=== PATIENT | male | born 1940 | race Caucasian/White ===

== ENCOUNTER 2017-01-27 11:58 | Observation (INO) | payer MEDICARE, BC ==
[~2017-01-27] VITALS: Ht 163.8 cm; Wt 64.5 kg
--- NOTE | ~2017-01-27 | HEMODYNAMI ---
PATIENT:CHRISTEN GOLDSTEIN MEDICAL RECORD: [id number] : 38 LOCATION:[place] [address] ADMISSION DATE: 01/27/17 Generatedon:01/28/201713:41 Patient name: CHRISTEN GOLDSTEIN Patient #: [id number] SSN: : 1 11/16/1939 Date of study: 01/28/2017 Page: Of Hemodynamic Procedure Report Patient Data Patient Demographics Procedure consent was obtained First Name: CHRISTEN Gender: Male Last Name: TRISTON : 1940 [facility] Initial: GENE Age: 76 year(s) Patient #: [id number] Race: Unknown Additional ID: [id number] Contact details Address: [address] [place] [address] [facility] State: [place] City: [place] Zip code: [address] Past Medical History Allergies: No known allergies Admission Admission Data Admission Date: 01/27/2017 Admission Time: 18:13 Room #: [facility] Lab Results Lab Result Date: 01/28/2017 Lab Result Time: 0:00 Biochemistry Name Units Result Min Max BUN mg/dl 29 --(----)-* 7 18 Creatinine mg/dl 1.9 --(----)-* 0.6 1.3 CBC Name Units Result Min Max Hemoglobin g/dl 14.8 --(-*--)-- 13.5 17.5 Procedure Procedure Types Cath Procedure Diagnostic Procedure LHC LHC w/Coronaries w/Grafts Procedure Description Procedure Date Procedure Date: 01/28/2017 Procedure Start Time: 13:19 Procedure End Time: 13:40 Procedure Staff Name Function Lowell Coleman MD Performing Physician Rissa Wilson RN Nurse Diaz Mejias RT Monitor Aris Grigsby RT Scrub Procedure Data Cath Procedure Fluoroscopy Diagnostic fluoroscopy Total fluoroscopy Time: 5.2 time: 5.2 min min Diagnostic fluoroscopy Total fluoroscopy dose: 327 dose: 327 mGy mGy Contrast Material Contrast Material Type Amount (ml) Isovue 300 87 Entry Location Entry Primary Successful Side Size Upsize Upsize Entry Closure Succes sful Closure Location (Fr) 1 (Fr) 2 (Fr) Remarks Device Remarks Femoral Right 5 Fr Exoseal artery Estimated blood loss: 10 ml Diagnostic catheters Device Type Used For End Catheter Placement Cordis 5Fr JL 4.0 Procedure Catheter (MP) Cordis 5Fr 3DRC Catheter Procedure (MP) Cordis 5Fr Pigtail Procedure Catheter (MP) Procedure Complications No complications Procedure Medications Medication Administration Route Dosage Oxygen NC 2 l/min Heparin Flush Bag added to field 2 bags (1000units/500ml NS) Lidocaine 2% added to field 20 Versed I.V. 1 mg Fentanyl I.V. 50 mcg Versed I.V. 0.5 mg Fentanyl I.V. 25 mcg Versed I.V. 0.5 mg Fentanyl I.V. 25 mcg Hemodynamics Rest HGB: 14.8 (g/dl) Heart Rate: 48 (bpm) Pressure Samples Time Site Value (mmHg) Purpose Heart Use Rate(bpm) 13:27 AO 138/63(94) Snapshot 53 13:32 LV 117/-5,5 Snapshot 65 Gradients Valve Time Site Site Mean SEP/DFP Peak To Heart Use 1 2 (mmHg) (sec/min) Peak Rate (mmHg) (bpm) Aortic 13:32 LV AO 58 Snapshots Pre Cath Intra NCS Post Cath Vital Signs Time Heart Resp SPO2 etCO2 [id number] NIBP (mmHg) Rhythm Pain Sedation Rate (ipm) (%) (mmHg) (mmHg) Status Level (bpm) 13:00:29 59 16 100 0 0 124/74(98) A-Fib 0 (11) 10(A) , No pain 13:04:37 55 16 99 0 0 121/77(113) A-Fib 0 (11) 10(A) , No pain 13:08:49 60 16 98 0 0 133/61(99) A-Fib 0 (11) 10(A) , No pain 13:13:01 59 16 98 0 0 119/73(88) A-Fib 0 (11) 9(A) , No pain 13:17:56 61 17 98 0 0 111/73(94) A-Fib 0 (11) 9(A) , No pain 13:22:02 54 16 96 0 0 119/69(100) A-Fib 0 (11) 9(A) , No pain 13:26:11 60 16 98 0 0 116/64(98) A-Fib 0 (11) 9(A) , No pain 13:30:24 53 17 99 0 0 125/59(86) A-Fib 0 (11) 9(A) , No pain 13:34:31 57 17 99 0 0 136/77(117) A-Fib 0 (11) 9(A) , No pain 13:37:17 61 15 97 0 0 138/64(109) A-Fib 0 (11) 9(A) , No pain Medications Time Medication Route Dose Verified Delivered Reason Notes Effec tiveness by by 12:59:30 Oxygen NC 2 Lowell Rissa Per l/min [facility] RN physician 12:59:39 Heparin Flush added 2 Lowell Lowell used for Bag to bags [facility] procedure (1000units/500ml field MD BAILEY NS) 12:59:45 Lidocaine 2% added 20ml Lowell Lowell used for to vial [facility] procedure field MD BAILEY 13:08:57 Versed I.V. 1 mg [facility] 13:09:03 Fentanyl I.V. 50 Lowell Rissa for mcg [facility] 13:16:28 Versed I.V. 0.5 Lowell Rissa for mg [facility] sed[facility] 13:16:30 Fentanyl I.V. 25 Lowell Rissa for mcg [facility] sed[facility] 13:19:41 Fentanyl I.V. 25 Lowell Rissa for mcg [facility] sed[facility] 13:19:52 Versed I.V. 0.5 Lowell Rissa for mg [facility] RN sedation Procedure Log Time Note 12:30:48 Aris Grigsby RT(R) sent for patient. Start room use. 12:43:57 Time tracking: Regular hours 12:44:03 Plan of Care:Hemodynamics will remain stable., Cardiac rhythm will remain stable., Comfort level will be maintained., Respiratory function will remain adequate., Patient/ family verbilizes understanding of procedure., Procedure tolerated without complication., Recovers from procedure without complications.. 12:44:12 Patient allergic to No known allergies 12:45:05 Lab Result : BUN 29 mg/dl 12:45:05 Lab Result : Creatinine 1.9 mg/dl 12:45:05 Lab Result : Hemoglobin 14.8 g/dl 12:45:11 Lab results completed and on chart. 12:54:22 Patient received from PCU to CCL 1 Alert and oriented. Tansferred to table in Supine position. 12:54:23 Warm blankets applied, and jackelyn hugger turned on for patient comfort. 12:54:23 Correct patient and procedure confirmed by team. 12:54:24 Signed procedure consent form obtained from patient. 12:54:25 ECG and BP/O2 sat monitors applied to patient. 12:59:18 Vital chart was started 12:59:30 Oxygen 2 l/min NC was administered by Rissa Wilson RN; Per physician; 12:59:39 Heparin Flush Bag (1000units/500ml NS) 2 bags added to field was administered by Lowell Coleman MD; used for procedure; 12:59:45 Lidocaine 2% 20ml vial added to field was administered by Lowell Coleman MD; used for procedure; 13:00:05 Full Disclosure recording started 13:06:39 Baseline sample Acquired. 13:06:42 Rhythm: atrial fibrillation 13:07:29 H&P Date Dictated: 01/28/2017 Within 30 days and on chart.. 13:07:30 Pre-procedure instructions explained to patient. 13:07:30 Pre-op teaching completed and patient verbalized understanding. 13:07:32 Family in waiting room. 13:07:33 Patient NPO since Midnight. 13:07:36 Is the patient allergic to Iodine/contrast media? No. 13:07:41 Is patient on blood thinner?Yes 13:07:43 ACC The patient was administered the following blood thiners within the last 24 hours: ACCPlavix 13:07:45 Patient diabetic? Yes. 13:07:46 If diabetic: On Metformin? No 13:07:49 Previous problem with sedation/anesthesia? No ? 13:07:50 Snore? Yes 13:07:51 Sleep apnea? Yes 13:07:52 Deviated septum? No 13:07:52 Opens mouth fully? Yes 13:07:53 Sticks out tongue? Yes 13:07:55 Airway obstruction? No ? 13:08:03 Dentures? Yes IN 13:08:10 Pre procedure: right dorsailis pedis pulse 1+ Palpable, but thready & weak; easily obliterated 13:08:12 Patient pain scale 0/10 ?. 13:08:15 IV patent on arrival in left forearm with 0.9% NaCl at [facility]. 13:08:22 Right groin area was prepped with chlora-prep and draped in sterile fashion 13:08:24 Alarms reviewed by R. N. 13::24 Sharps counted by scrub and verified by R.N. 13:08:26 --------ALL STOP TIME OUT------ 13::27 Final Timeout: patient, procedure, and site verified with staff and physician. All members of the team are in agreement. 13:08:29 Right groin site verified by team. 13:08:33 Physical assessment completed. ASA score P 2 - A patient with mild systemic disease as per Lowell Coleman MD. 13:08:35 Sedation plan: IV Moderate Sedation Versed, Fentanyl 13:08:57 Versed 1 mg I.V. was administered by Rissa Wilson RN; for sedation; 13:09:03 Fentanyl 50 mcg I.V. was administered by Rissa Wilson RN; for sedation; 13:16:28 Versed 0.5 mg I.V. was administered by Rissa Wilson RN; for sedation; 13:16:30 Fentanyl 25 mcg I.V. was administered by Rissa Wilson RN; for sedation; 13:18:59 Procedure started. 13:19:02 Local anesthetic to right femoral artery with Lidocaine 2% by Lowell Coleman MD.INITIAL ACCESS ONLY 13:19:09 Zero performed for pressure channel P1 13:19:18 Use device set Femoral Dx 13:19:19 Tegaderm 4 x 4 opened to sterile field. 13:19:20 Acist Hand Control opened to sterile field. 13:19:20 Acist Manifold opened to sterile field. 13:19:22 Acist Syringe opened to sterile field. 13:19:22 Bag Decanter opened to sterile field. 13:19:23 Medline Cath Pack opened to sterile field. 13:19:23 Terumo 5Fr Mantoloking Sheath opened to sterile field. 13:19:23 St Alec 260cm J .035 wire opened to sterile field. 13:19:25 Diagnostic Infinity 5Fr Multipack catheter opened to sterile field. 13:19:41 Fentanyl 25 mcg I.V. was administered by Rissa Wilson RN; for sedation; 13:19:52 Versed 0.5 mg I.V. was administered by Rissa Wilson RN; for sedation; 13:22:05 A 5 Fr sheath was inserted into the Right Femoral artery 13:22:52 A Cordis 5Fr JL 4.0 Catheter (MP) was advanced over the wire and used for Procedure. 13:23:38 LCA angiography performed. 13:24:21 Catheter removed. 13:25:38 A Cordis 5Fr 3DRC Catheter (MP) was advanced over the wire and used for Procedure. 13:27:47 RCA angiography performed. 13:29:47 FRANK to LAD angiography performed. 13:30:58 Catheter removed. 13:31:04 A Cordis 5Fr Pigtail Catheter (MP) was advanced over the wire and used for Procedure. 13:32:15 LV angiography performed. 13:32:16 LV gram done using NICHOLSON 13:32:33 EF : 20 % 13:32:51 LV hemodynamics recorded. 13:33:03 Injector settings: Ml/sec: 10, Volume: 20, 13:33:07 Catheter removed. 13:33:45 Cordis 5Fr Exoseal opened to sterile field. 13:34:00 Sheath removed intact; hemostasis achieved with Exoseal to the Right Femoral artery. 13:34:08 Procedure ended.(Physican Out) 13:34:24 Fluoroscopy time 05.20 minutes. 13:34:28 Fluoroscopy dose: 327 mGy 13:34:28 Flurop Dose total: 327 13:35:10 Contrast amount:Isovue 300 87ml. 13:35:16 Sharps counted by scrub and verified by R.N. 13:35:18 Insertion/operative site no bleeding no hematoma. 13:35:21 Post-op/insertion site Right Femoral artery dressed using a 4 x 4 and Tegaderm. 13:35:23 Post Procedure Pulses reassessed and unchanged 13:35:26 Post-procedure physical assessment completed. ASA score P 2 - A patient with mild systemic disease as per Lowell Coleman MD. 13:35:29 Post procedure rhythm: unchanged. 13:35:32 Estimated blood loss: 10 ml 13:35:37 Post procedure instruction explained to patient.Patient verbalizes understanding. 13:35:38 Patient needs reinforcement of post procedure teaching. 13:35:39 Procedure and supply charges have been captured, reviewed, submitted and are correct. 13:35:43 Procedure Complication : No complications 13:40:43 Vital chart was stopped 13:40:44 See physician's report for complete and final results. 13:40:46 Report given to PCU. 13:40:49 Patient transfered to PCU with Bed. 13:40:52 Procedure ended. 13:40:52 Full Disclosure recording stopped 13:41:15 End room use (Document Last) Device Usage Item Name Manufacture Quantity Catalog Hospital Part Current Minimal Lo t# / Number Charge Number Stock Stock Serial# Code Tegaderm 4 3M 1 1626W 238367 879321 196835 5 x 4 Acist Hand Acist 1 90632 531242 310887 918727 5 Control Medical Systems [employer] Acist Acist 1 34861 803882 918110 723555 5 Manifold Medical Systems Inc Acist Acist 1 94206 726538 159871 372465 20 Syringe Medical Systems Inc Bag Microtek 1 2002S 321006 02008 706031 5 Decanter Medical Inc. Medline Cardinal 1 [id number] 041933 19130 470719 5 Cath Pack Health Terumo 5Fr Terumo 1 [id number] 044512 561846 115124 [address] Ale[address] St Alec 1 188875 590659 958155 214254 30 260cm J .035 wire Diagnostic Cardinal 1 [id number] 305702 06866 805627 30 Infinity Health 5Fr Multipack catheter Cordis 5Fr Cardinal 1 527230 5 JL 4.0 Health Catheter (MP) Cordis 5Fr Cardinal 1 255689 5 3DRC Health Catheter (MP) Cordis 5Fr Cardinal 1 947616 5 Pigtail Health Catheter (MP) Cordis 5Fr Cardinal 1 EX500 314728 583175 634992 10 Exoseal Health Signature [employer] Stage Time Signature Unsigned Intra-Procedure 01/28/2017 Diaz Mejias 1:41:35 PM RT(R) Signatures Monitor : Diaz Mejias RT Signature : Date : Time : [address] [place] [address]
[~2017-01-27 11:58] MED LIST: ACTIGALL 300 M300 MG PO; ASPIRIN 81 MG E81 MG PO; CARDURA4 MG PO; CARDURA8 MG PO; CATAPRES0.2 MG PO; GLIPIZIDE10 MG PO; IMDUR60 MG PO; NORVASC5 MG PO; NOVOLIN N100 U/ML SQ; PERCOCET 5/3251 TA1 PO; PLAVIX75 MG PO; PRAVACHOL40 MG PO; PROCARDIA XL 3030 MG PO; PROSCAR5 MG PO; RESTORIL15 MG PO; TENORMIN25 MG PO; ZOFRAN4 MG PO
[2017-01-27 15:01] LABS: BASOPHILS 0.1 % (0.0-2.0); EOSINOPHILS 0.3 % (0-7); HEMATOCRIT 40.6 % (42.0-54.0); IMMATURE GRANULOCYTES 0.2 % (0-5); LYMPHOCYTES 7.9 % (15-50); MCH 31.9 pg (26.0-34.0); MCHC 34.5 g/dL (31.0-37.0); MCV 92.5 fL (80.0-100.0); MEAN PLATELET VOLUME 11.4 fL (7.4-10.4); MONOCYTES 6.7 % (2-11); NEUTROPHILS 84.8 % (40-80); PLATELET COUNT 139 10x3/uL (130-400); RBC 4.39 10x6/uL (4.20-6.10); RDW 14.6 % (11.5-14.5); WBC 8.9 10x3/uL (4.8-10.8)
[2017-01-27 15:17] LABS: ALBUMIN 3.3 g/dL (3.4-5.0); ALKALINE PHOSPHATASE 76 U/L (46-116); ALT (SGPT) 20 U/L (10-68); BILIRUBIN - TOTAL 0.71 mg/dL (0.2-1.3); CALC OSMOLALITY 278 mosm/kg (275-300); CALCIUM 9.7 mg/dL (8.5-10.1); CARBON DIOXIDE 28.9 mmol/L (21.0-32.0); CHLORIDE - SERUM 97 mmol/L (98-107); CREATININE - SERUM 1.2 mg/dL (0.6-1.3); POTASSIUM - SERUM 4.5 mmol/L (3.5-5.1); PROTEIN - SERUM 6.2 g/dL (6.4-8.2); SODIUM 134 mmol/L (136-145); UREA NITROGEN 27 mg/dL (7-18); eGFR NON AFRICAN AMERICAN 62 mL/min (90-120)
[2017-01-27 15:18] LABS: GLUCOSE 213 mg/dL (74-106)
[2017-01-27 15:27] LABS: CHOL - HDL RATIO 2.5 ratio (2.3-4.9); CHOLESTEROL, TOTAL 152 mg/dL (0-200); CKMB 2.1 U/L (0.0-3.6); CREATINE KINASE 70 UL (21-232); HDL CHOLESTEROL 62 mg/dL (32-96); LDL CHOLESTEROL 44 mg/dL (0-100); LDL-HDL RATIO 0.7 ratio (1.5-3.5); LIPASE 382 U/L (73-393); TROPONIN-I 0.036 ng/mL (0.000-0.060)
[2017-01-27 15:28] LABS: TRIGLYCERIDE 234 mg/dL (30-200)
[2017-01-27 20:00] VITALS: BP 175/89
[2017-01-27 20:03] VITALS: Ht 163.8 cm; Wt 64.5 kg
[2017-01-27] MEDS ORDERED: PREDNISONE20 MG PO (22:49)
[2017-01-27] MEDS ORDERED: DIPHEDRYL25 MG PO (22:51)
[2017-01-28 04:00] VITALS: BP 145/61
[2017-01-28 05:28] LABS: BASOPHILS 0.1 % (0.0-2.0); EOSINOPHILS 2.3 % (0-7); HEMATOCRIT 42.9 % (42.0-54.0); HEMOGLOBIN 14.8 g/dL (13.5-17.5); IMMATURE GRANULOCYTES 0.2 % (0-5); LYMPHOCYTES 21.8 % (15-50); MCH 31.9 pg (26.0-34.0); MCHC 34.5 g/dL (31.0-37.0); MCV 92.5 fL (80.0-100.0); MONOCYTES 9.2 % (2-11); NEUTROPHILS 66.4 % (40-80); PLATELET COUNT 154 10x3/uL (130-400); RBC 4.64 10x6/uL (4.20-6.10); RDW 14.6 % (11.5-14.5); WBC 9.1 10x3/uL (4.8-10.8)
[2017-01-28 06:03] LABS: ALBUMIN 3.2 g/dL (3.4-5.0); ANION GAP 11.9 mmol/L (8-16); BILIRUBIN - TOTAL 0.9 mg/dL (0.2-1.3); CALCIUM 9.8 mg/dL (8.5-10.1); CARBON DIOXIDE 29.3 mmol/L (21.0-32.0); CREATININE - SERUM 1.9 mg/dL (0.6-1.3); POTASSIUM - SERUM 4.2 mmol/L (3.5-5.1); PROTEIN - SERUM 6.5 g/dL (6.4-8.2)
[2017-01-28 08:04] VITALS: BP 127/60
--- NOTE | 2017-01-28 10:00 | NUR ---
PT REFUSED SCDS R/T BEING UP AD MADI AND DENIES WANT/NEED FOR THEM.
--- NOTE | 2017-01-28 10:05 | NUR ---
PT REFUSED ALL ORDERED AM MEDICATIONS R/T HAVING HIS SAME PILLS AND DOSES FROM HOME WITH HIM. PT TOOK ALL SCHEDULED MEDS INCLUDING PLAVIX AND ASA. CATH WILL BE LATER TODAY. CONSENTS SIGNED AND OBTAINED IN CHART. PT RESTING QUIETLY WITH FAMILY AT BEDSIDE. DENIES ANY CURRENT PAIN OR NEEDS. CL IN REACH. WILL CPOC.
--- NOTE | 2017-01-28 12:45 | NUR ---
PT OFF TO AUTOMOTIVE FINANCE MANAGER.
[2017-01-28 13:01] VITALS: BP 95/54
--- NOTE | 2017-01-28 14:06 | NUR ---
PT BACK FROM PRODUCTION CREW SUPERVISOR.
--- NOTE | 2017-01-28 14:15 | NUR ---
VSS AND BEING MONITERED [id number] PER POST PROCEDURE PROTOCOL. PT HAS DAMASO LAM CDI, NO S/S OF HEMATOMA OR BLEEDING NOTED. PT HAD A CLEAN CATH AND IS TO REMAIN FLAT FOR 2 HOURS AND IS AWARE. PERIPHERAL PULSES INTACT, FAMILY AT BEDSIDE. WILL CPOC.
--- NOTE | 2017-01-28 16:02 | NUR ---
PT READY TO SIT UP. 2 HOUR FLAT LAY COMPLETE. PTS VSS, PERIPHERAL PULSES INTACT. R.GROIN DRSG CDI, NO S/S OF HEMATOMA NOTED. PT WANTING TO BE D/C CARDIOLOGY SIGNED OFF, WAITING ON PRIMARY. NO FURTHER NEEDS AT THIS TIME. CL IN REACH, BED IN LOWEST, SIDE RAILS X2. WILL CPOC.
--- NOTE | 2017-01-28 16:48 | NUR ---
VERBAL ORDERS REC'D FOR PT TO BE ON XARELTO 15MG QD PER FOR NEW ONSET A.FIB.
[2017-01-28] MEDS ORDERED: ALDACTONE25 MG PO (16:55)
[2017-01-28] MEDS ORDERED: XARELTO15 MG PO (16:55)
--- NOTE | 2017-01-28 17:39 | NUR ---
D/C PTS L.FA PIV WITH CATHETER TIP FULLY INTACT. DISCHARGE TEACHING COMPLETED AND PAPERS SIGNED. PT READY TO BE TRANSPORTED DOWN. NO FURTHER NEEDS.
--- NOTE | 2017-02-02 08:42 | OP ---
PATIENT NAME: CHRISTEN GOLDSTEIN MEDICAL RECORD: [id number] :38 LOCATION:[place] D.2123 ADMISSION DATE:01/27/17 SURGEON: TOVA FOX MD DATE OF OPERATION: 01/28/2017 PROCEDURE: Left heart catheterization, selective coronary angiography, right femoral approach. CATHETERS: A 5-American sheath, 5/4 left and right Spring, 5/4 pig. The procedure was well tolerated. The patient taken to the lugo. Sheath removed. ExoSeal device was placed. FINDINGS: Left ventriculography in 30-degree NICHOLSON view shows severe global hypokinesis, reduced EF, estimated at 20%. CORONARY ANATOMY: Left main: Left main tapers about 90% stenosis ____. Circumflex itself is totally occluded. LAD: The LAD fills for a short period of time and is totally occluded. CIRCUMFLEX: Totally occluded, fills via left to left and right to left collaterals. RIGHT CORONARY ARTERY: Area of previous stenting is widely patent. FRANK to LAD is widely patent throughout its course without evidence of post-anastomotic stenosis also fills the diagonal system. IMPRESSION: Patent left internal mammary artery to the left anterior descending artery. Patent right coronary stents. Circumflex is occluded, but fills via collaterals. Left ventricular function is decreased. We will add Aldactone to current medical regime. TRANSINT:[id number] Voice Confirmation ID: [id number] DOCUMENT ID: [id number] TOVA FOX MD at 0842 CC: [id number] DICTATION DATE: 01/28/17 1346 CERTIFIED NURSING ASSISTANT: 01/28/17 1633 DIS IN 01/28/17 [facility] [address] [place] [place] [id number]
--- NOTE | 2017-02-02 08:43 | CN ---
PATIENT NAME:CHRISTEN GOLDSTEIN MEDICAL RECORD: [id number] : 38 LOCATION:[place] ADMIT DATE: 01/27/17 ACCOUNT: [id number] CONSULTING PHYSICIAN: TOVA FOX MD REFERRING PHYSICIAN: LORRIE MEDINA MD DATE OF CONSULTATION: 01/28/2017 HISTORY OF PRESENT ILLNESS: A 76-year-old gentleman with history of coronary artery disease, status post bypass surgery in 1993, ____ intervention back in 2013, was admitted with chest pain and has been doing fairly well until recently been having more chest pain ____ coronary artery disease, found to have new onset atrial fibrillation. He has a history of dyslipidemia, diabetes mellitus as well. PAST MEDICAL HISTORY: Includes: 1. Hypertension. 2. Obstructive pulmonary disease. 3. Rheumatoid arthritis. 4. Diabetes mellitus. MEDICATIONS: Include prednisone 40 q.day, Proscar 5 q.day, Glucotrol 10 q. day, insulin per scale, Zofran 4 mg q.6 hours p.r.n., atenolol 25 q.day, pravastatin 40 q.day, Imdur 60 b.i.d., Cardura 8 mg q.day, clonidine 0.2 q.8 hours, Plavix 75 q.day. SOCIAL HISTORY: He lives here in [place]. He is a nonsmoker. He is able to take care of his ADLs. REVIEW OF SYSTEMS: The patient reports easy bruising but reports no swollen glands. The patient reports no fever, no night sweats, no significant weight gain, no significant weight loss. No significant exercise tolerance. The patient reports no dry eyes, no irritation, no vision change. Patient reports no difficulty hearing and no ear pain. Patient reports no frequent nose bleeds or nose and sinus problems. Patient reports on arm pain on exertion. No shortness of breath while lying down. No history of heart murmur. Patient reports no cough, no wheezing or coughing up blood. Patient reports no abdominal pain, no vomiting. Normal appetite. No diarrhea and not vomiting blood. No nausea and no constipation. Patient reports no incontinence. No difficulty urinating. No hematuria. No increased frequency. Patient reports no muscle aches. No weakness, no arthralgias, no back pain. No swelling of the extremities. Patient reports no abnormal mole, no jaundice, no rashes. Reports no loss of consciousness. No weakness and no numbness. No seizures, dizziness, or headaches. The patient reports no depression, no sleep disturbance, feeling safe in a relationship and no alcohol abuse. Patient reports on fatigue. Reports no runny nose or sinus pressure. No itching, no hives, and no frequent sneezing. ALLERGIES: None known. PHYSICAL EXAMINATION: GENERAL: Pleasant gentleman, in no acute distress, appears stated age. VITAL SIGNS: Blood pressure 127/60, pulse 68 and irregular. HEENT: Normocephalic, atraumatic. NECK: No JVD or bruits. HEART: Irregular, rate is controlled, III/ systolic ejection murmur. CONSULT REPORT [id number] CHRISTEN GOLDSTEIN LUNGS: Fair air excursion. ABDOMEN: Soft, nontender. EXTREMITIES: Pulses 2+. No edema. IMPRESSION: Acute coronary syndrome. PLAN: Diagnostic angiography, intervention based on the above. TRANSINT:[id number] Voice Confirmation ID: [id number] DOCUMENT ID: [id number] TOVA FOX MD at 0843 CC: [id number] DICTATION DATE: 01/28/17 0845 MARKETING PROFESSIONAL: 01/28/17 1220 DIS IN 01/28/17 [place] [address] [id number] [place] [address]
== END 2017-01-28 17:41 | disposition home or self-care (01) ==
LOC: D.ER 11:58 → D.M2 18:13 → OBSVTIME 18:13 → D.M2 01-28 17:41
PROVIDERS: Emergency Medicine; ADMIT Family Medicine
DX: I25.10 Atherosclerotic heart disease of native coronary artery without angina pectoris (principal); Z95.1 Presence of aortocoronary bypass graft; Z95.5 Presence of coronary angioplasty implant and graft; E11.9 Type 2 diabetes mellitus without complications; Z79.4 Long term (current) use of insulin; J44.9 Chronic obstructive pulmonary disease, unspecified; M06.9 Rheumatoid arthritis, unspecified; I48.91 Unspecified atrial fibrillation; I48.92 Unspecified atrial flutter; I10 Essential (primary) hypertension; E78.5 Hyperlipidemia, unspecified; Z72.0 Tobacco use

== ENCOUNTER → 2017-02-08 08:51 | Outpatient (CLI) | payer MEDICARE, BC ==
[2017-01-27 20:03] VITALS: BMI 24.0
[~2017-02-08 08:51] MED LIST changes: +ALDACTONE25 MG PO; +DIPHEDRYL25 MG PO; +PREDNISONE20 MG PO; +XARELTO15 MG PO
[2017-02-08 10:07] LABS: CREATININE - SERUM 1.7 mg/dL (0.6-1.3)
== END | disposition home or self-care (01) ==
LOC: D.CT 08:51
PROVIDERS: Family Medicine
DX: R07.9 Chest pain, unspecified (principal)

== ENCOUNTER 2017-04-21 10:34 | Outpatient (CLI) | payer MEDICARE, BC ==
[~2017-04-21] VITALS: Ht 163.8 cm; Wt 58.4 kg
--- NOTE | ~2017-04-21 | OP ---
PATIENT NAME: CHRISTEN GOLDSTEIN MEDICAL RECORD: [id number] :38 LOCATION:D. D.2114 ADMISSION DATE: SURGEON: SERGIO BARBA MD DATE OF OPERATION: 04/21/2017 PREOPERATIVE DIAGNOSES: 1. Bradycardia. 2. Diabetes mellitus. 3. Coronary artery disease. 4. Hypertension. 5. Hyperlipidemia. 6. Peripheral vascular disease. POSTOPERATIVE DIAGNOSES: 1. Bradycardia. 2. Diabetes mellitus. 3. Coronary artery disease. 4. Hypertension. 5. Hyperlipidemia. 6. Peripheral vascular disease. PROCEDURE: Right subclavian vein, dual lead pacemaker placement with fluoroscopic interpretation. SURGEON: Sergio Barba MD COSURGEON: Lowell Coleman MD REPORT OF OPERATION: The patient's right chest was prepped and draped in sterile fashion. A 25 mL of 1% lidocaine with epinephrine were infused into the surrounding tissues. A skin incision was made on the right lateral upper chest and a subcutaneous pouch was made overlying the pectoral fascia. Two separate sticks were used to access the patient's right subclavian vein and under fluoroscopic guidance, we could see that the wires were projecting up towards the internal jugular. We tried to reposition both these wires, but they never would pass down into the superior vena cava, eventually both these wires slipped out. We did a separate stick. We were able to finally pass a wire which passed through into the superior vena cava. At this point, a 9-[place] Citizen sheath was placed over the wire and a separate wire was placed through the sheath. With the [address], the sheath was removed. A 7-[place] Citizen sheath were then placed over the wire. The wire and dilators were then removed. The leads were inserted at this point and at that time Dr. Coleman came in and positioned the leads correctly in the patient's atria and ventricle. With the leads in place, these were sutured into position with 0 Ti-Cron and then affixed to the pacemaker. The pacemaker was inserted into the subcutaneous pouch and sutured down to the pectoral fascia using an interrupted 0 Ti-Cron. We irrigated out the wound with antibiotic solution. The subcutaneous tissues were reapproximated with interrupted 3-0 Vicryls and the skin was closed with running subcutaneous 5-0 Monocryl. COMPLICATIONS: None. CONDITION: Stable. ANESTHESIA: Local MAC. OPERATIVE REPORT [id number] GOLDSTEIN,CHRISTEN GENE BLOOD LOSS: Minimal. TRANSINT:[id number] Voice Confirmation ID: [id number] DOCUMENT ID: [id number] SERGIO BARBA MD CC: [id number] DICTATION DATE: 04/21/171454 BAR AND FILLER ASSEMBLER: 04/22/17 0251 [facility] [address] [id number]
--- NOTE | ~2017-04-21 | HEMODYNAMI ---
PATIENT:CHRISTEN GOLDSTEIN MEDICAL RECORD: [id number] : 38 LOCATION:[facility] ADMISSION DATE: 04/21/17 Generatedon:04/21/201714:55 Patient name: CHRISTEN GOLDSTEIN Patient #: [id number] : 1940 Date of study: 04/21/2017 Page: Of Hemodynamic Procedure Report Patient Data Patient Demographics Procedure consent was obtained First Name: CHRISTEN Gender: Male Last Name: TRISTON : 1940 [facility] Initial: GENE Age: 76 year(s) Patient #: [id number] Race: Unknown SSN: [id number] Additional ID: [id number] Contact details Address: [address] [place] [address] [facility] State: [place] City: [place] Zip code: [address] Past Medical History Allergies: No known allergies Admission Admission Data Admission Date: 04/21/2017 Admission Time: 10:34 Arrival Date: 04/21/2017 Arrival Time: 0:00 Admit Source: Other Insurance Payor: Medicare, Private health insurance Height (in.): 64 BSA: 1.64 (m2) Height (cm.): 162.56 BMI: 22.66 (kg/m2) Weight (lbs.): 132 Weight (kg.): 59.87 Lab Results Lab Result Date: 04/21/2017 Lab Result Time: 11:40 Biochemistry Name Units Result Min Max BUN mg/dl 43 --(----)-* 7 18 Creatinine mg/dl 1.9 --(----)-* 0.6 1.3 CBC Name Units Result Min Max Hematocrit % 36.3 *-(----)-- 42 54 Hemoglobin g/dl 12.6 -*(----)-- 13.5 17.5 Procedure Procedure Types Cath Procedure Diagnostic Procedure PPM/ICD PPM Dual Implant Miscellaneous Procedures Moderate Sedation up to 45 minutes Procedure Description Procedure Date Procedure Date: 04/21/2017 Procedure Start Time: 0:00 Procedure Staff Name Function Lowell Coleman MD Performing Physician Sridhar Silva RN Nurse Jennifer Rogers RT Monitor Rogelio Wilkinson MD Assisting physician Delisa Munson RT Monitor [place] RT Scrub Procedure Data Cath Procedure Fluoroscopy Diagnostic fluoroscopy Total fluoroscopy Time: 4 time: 4 min min Diagnostic fluoroscopy Total fluoroscopy dose: 150 dose: 150 mGy mGy Estimated blood loss: 5 ml Procedure Complications No complications Procedure Medications Medication Administration Route Dosage Lidocaine 1% with added to field 20 ml Epi Bupivacaine 0.5% S.Q. 10 ml Ancef (1Gm/50ml NS) I.V.P.B 1 g Ancef Irrigation Topical 1 g (1gm/500ml NS) 0.9% NaCl I.V. Versed I.V. 2 mg Fentanyl I.V. 100 mcg Versed I.V. 1 mg Fentanyl I.V. 50 mcg Versed I.V. 1 mg Fentanyl I.V. 50 mcg Hemodynamics Rest BSA: 1.64 (m2) HGB: 12.6 (g/dl) O2 Consumption: Estimated: 173.74 (ml/min) O2 Co nsumption indexed: Estimated:105.94 (ml/min/m) Heart Rate: 47 (bpm) Snapshots Pre Cath Intra NCS Post Cath Vital Signs Time Heart Resp SPO2 NIBP (mmHg) Rhythm Pain Sedation Rate (ipm) (%) Status Level (bpm) 13:08:26 46 19 95 161/61(131) SB 0 (11) 10(A) , No pain 13:12:50 47 14 94 153/66(116) SB 0 (11) 10(A) , No pain 13:17:08 46 16 96 159/67(128) SB 0 (11) 10(A) , No pain 13:21:30 46 17 94 142/69(123) SB 0 (11) 10(A) , No pain 13:26:41 45 16 97 155/62(123) SB 0 (11) 10(A) , No pain 13:32:01 48 16 95 129/67(118) SB 0 (11) 10(A) , No pain 13:37:18 50 16 95 144/68(113) SB 0 (11) 10(A) , No pain 13:41:38 46 15 98 153/59(120) SB 0 (11) 10(A) , No pain 13:46:00 46 16 97 155/64(129) SB 0 (11) 10(A) , No pain 13:50:23 48 16 99 161/64(121) SB 0 (11) 10(A) , No pain 13:54:47 46 16 99 158/67(117) SB 0 (11) 10(A) , No pain 13:59:09 50 14 100 160/71(131) SB 0 (11) 10(A) , No pain 14:03:39 50 17 95 154/67(119) SB 0 (11) 10(A) , No pain 14:08:00 49 17 96 159/71(132) SB 0 (11) 10(A) , No pain 14:12:24 46 18 96 156/66(128) SB 0 (11) 10(A) , No pain 14:17:37 47 19 98 178/81(142) SB 0 (11) 10(A) , No pain 14:22:08 47 18 97 177/70(143) SB 0 (11) 10(A) , No pain 14:27:42 42 16 97 178/67(138) SB 0 (11) 10(A) , No pain 14:31:59 33 15 96 139/73(131) SB 0 (11) 10(A) , No pain 14:38:16 65 18 96 174/73(141) Paced 0 (11) 10(A) , No pain 14:42:43 59 17 95 135/73(106) Paced 0 (11) 10(A) , No pain 14:46:51 85 17 96 141/83(110) Paced 0 (11) 10(A) , No pain 14:51:06 61 19 97 121/70(96) Paced 0 (11) 10(A) , No pain Medications Time Medication Route Dose Verified Delivered Reason Notes Effectiv eness by by 13:05:27 Lidocaine added 20 ml Lowell Etienne for local 1% with Epi to [facility] anesthetic field MD BAILEY 13:05:38 Bupivacaine S.Q. 10ml Lowell Etienne for local 0.5% [facility] John anesthetic MD BAILEY 13:05:52 Ancef I.V.P.B 1 g Lowell Waller used for (1Gm/50ml Bartolo Silva maintainer central office NS) 13:06:45 Ancef Topical 1 g Lowell Buffie used for Irrigation BartoloRubin Silva maintainer central office (1gm/500ml NS) 13:07:00 0.9% NaCl I.V. kvo Lowell Jeffersonie Per ml/hr St. Rubin Silva RN physician 14:05:24 Versed I.V. 2 mg Lowell Jeffersonie for BartoloRubin Silva RN sedation 14:08:30 Fentanyl I.V. 100 Lowell Buffie for mcg JaredRubin Silva RN sedation 14:19:25 Versed I.V. 1 mg Lowell Buffie for Bartolo Silva RN sedation 14:19:29 Fentanyl I.V. 50 Lowell Buffie for mcg BartoloRubin Silva RN sedation 14:35:22 Versed I.V. 1 mg Lowell Buffie for BartoloRubin Silva RN sedation 14:35:26 Fentanyl I.V. 50 Lowell Buffie for mcg BartoloRosmery Silva RN sedation Procedure Log Time Note 12:08:05 Patient Height : 162.56 cm 12:08:20 Patient Weight : 59.87 kg 12:08:20 Insurance Payor : Private health insurance, Medicare 12:08:23 Arrival Date: 04/21/2017 12:00:00 AM 12:08:27 Admit Source: Other 12:09:00 Diagnostic Cath Status : Elective 12:09:37 Sridhar Silva RN sent for patient. Start room use. 12:09:40 Time tracking: Regular hours 12:09:46 Plan of Care:Hemodynamics will remain stable., Cardiac rhythm will remain stable., Comfort level will be maintained., Respiratory function will remain adequate., Patient/ family verbilizes understanding of procedure., Procedure tolerated without complication., Recovers from procedure without complications.. 12:42:05 Patient received from Pre/Post Procedure Room to CCL 2 Alert and oriented. Tansferred to table in Supine position. 12:42:07 Warm blankets applied, and jackelyn hugger turned on for patient comfort. 12:42:07 Correct patient and procedure confirmed by team. 12:42:08 Signed procedure consent form obtained from patient. 12:42:09 ECG and BP/O2 sat monitors applied to patient. 12:42:10 Full Disclosure recording started 12:51:21 Dr Wilkinson in OR. Patient resting comfortably. 13:05:27 Lidocaine 1% with Epi 20 ml added to field was administered by Lowell Coleman MD; for local anesthetic; 13:05:38 Bupivacaine 0.5% 10ml S.Q. was administered by Lowell Coleman MD; for local anesthetic; 13:05:52 Ancef (1Gm/50ml NS) 1 g I.V.P.B was administered by Sridhar Silva RN; used for procedure; 13:06:45 Ancef Irrigation (1gm/500ml NS) 1 g Topical was administered by Sridhar Silva RN; used for procedure; 13:07:00 0.9% NaCl kvo ml/hr I.V. was administered by Sridhar Silva RN; Per physician; 13:07:06 Vital chart was started 13:13:50 Baseline sample Acquired. 13:14:04 H&P Date Dictated: 04/12/2017 Within 30 days and on chart., H&P Addendum completed by physician on day of procedure. (MUST COMPLETE FOR ALL OUTPATIENTS). 13:14:05 Pre-procedure instructions explained to patient. 13:14:06 Pre-op teaching completed and patient verbalized understanding. 13:14:07 Family in waiting room. 13:14:08 Patient NPO since Midnight. 13:14:15 Patient allergic to No known allergies 13:14:16 Is the patient allergic to Iodine/contrast media? No. 13:14:58 Is patient on blood thinner?No 13:14:59 Patient diabetic? Yes. 13:15:00 If diabetic: On Metformin? No 13:15:03 Previous problem with sedation/anesthesia? No ? 13:15:04 Snore? Yes 13:15:05 Sleep apnea? No 13:15:06 Deviated septum? No 13:15:06 Opens mouth fully? Yes 13:15:07 Sticks out tongue? Yes 13:15:09 Airway obstruction? No ? 13:15:10 Dentures? No ? 13:15:23 IV patent on arrival in left forearm with 0.9% NaCl at KVO. 13:25:06 Lab Result : BUN 43 mg/dl 13:25:06 Lab Result : Creatinine 1.9 mg/dl 13:25:06 Lab Result : Hemoglobin 12.6 g/dl 13:25:07 Lab Result : Hematocrit 36.3 % 13:47:08 Lab results completed and on chart. 14:04:47 Right chest area was prepped with chlora-prep and draped in sterile fashion 14:04:49 Alarms reviewed by R. N. 14::49 Sharps counted by scrub and verified by R.N. 14::51 Physician arrived 14::51 --------ALL STOP TIME OUT------ 14::51 Final Timeout: patient, procedure, and site verified with staff and physician. All members of the team are in agreement. 14:04:56 Right chest site verified by team. 14:04:59 Physical assessment completed. ASA score P 2 - A patient with mild systemic disease as per Lowell Coleman MD. 14:05:03 Sedation plan: IV Moderate Sedation Versed, Fentanyl 14:05:24 Versed 2 mg I.V. was administered by Sridhar Silva RN; for sedation; 14:08:30 Fentanyl 100 mcg I.V. was administered by Sridhar Silva RN; for sedation; 14:19:25 Versed 1 mg I.V. was administered by Sridhar Silva RN; for sedation; 14:19:29 Fentanyl 50 mcg I.V. was administered by Sridhar Silva RN; for sedation; 14:20:46 [employer]tronic veterans service representative Remigio Reinoso present for procedure. 14:21:04 Pre sharps counted by scrub and verified by RN: Sutures: 14 Sponges: 5 Stick needles: 2 Skin needles: 2 Blade: 1 Cautery: 1 14:21:07 Grounding pad site Left thigh. 14:21:08 Grounding pad site free from injury. 14:21:51 Lidocaine 1% w/epi and Bupivacaine 0.5% to right subclavicular area by Rogelio Wilkinson MD. 14:21:58 Incision made to left subclavicular area. 14:22:00 Generator pocket made/opened. 14:27:35 Right subclavian vein accessed with 9Fr Safe Sheath. 14:29:20 Ventricular lead inserted and advanced. 14:29:29 Right subclavian vein accessed with 7Fr Safe Sheath. 14:29:34 Atrial lead inserted and advanced. 14:33:08 Ventricular lead positioned. 14:33:19 Ventricular lead tested. 14:33:31 Atrial lead positioned. 14:34:38 Atrial lead tested. 14:34:44 Peel-a-way sheath was split and removed. 14:34:44 Peel-a-way sheath was split and removed. 14:35:22 Versed 1 mg I.V. was administered by Sridhar Silva RN; for sedation; 14:35:26 Fentanyl 50 mcg I.V. was administered by Sridhar Silva RN; for sedation; 14:35:41 Ventricular lead attachment was completed with 2-0 ticron. 14:35:50 Atrial lead attachment was completed with 2-0 ticron. 14:37:35 Medtronic Adapta PPM Dual Generator opened to sterile field. 14:37:36 Medtronic 4074-52 PPM Lead opened to sterile field. 14:37:36 Medtronic 4574-45 PPM Lead opened to sterile field. 14:39:37 PPM Dual was attached to lead(s) and inserted into pocket. 14:39:48 Device pocket was irrigated with Ancef. 14:40:40 Subcutaneous closure was completed with 3-0 vicryl. 14:40:48 Use device set Pacemaker Set 14:40:49 Mepilex Dressing opened to sterile field. 14:40:50 2.0 Ticron Multipack opened to sterile field. 14:40:51 3.0 Vicryl Multipack [id number] opened to sterile field. 14:40:52 5.0 Monocryl PS2 [id number] opened to sterile field. 14:40:56 Immobilizer Sling Medium opened to sterile field. 14:41:29 Parameters-- Generator: Mode: AAIR<=>DDDR. Lower Rate: 60bpm. Upper Rate: 130bpm. 14:42:11 Parameters--Ventricular P/R Wave: 6.3mV. Current: 0.7mA; Threshold: 0.6V; Impedence: 1500.OHMS. 14:42:26 Parameters--Atrial P/R Wave: 2.1mV. Current: 1.1mA; Threshold: 0.6V; Impedence: 550OHMS. 14:42:32 Skin closure was completed with 5-0 monocryl. 14:42:39 Rt Chest incision was dressed with Mepilex dressing. 14:45:33 Procedure ended.(Physican Out) 14:45:45 Fluoroscopy time 04.00 minutes. 14:45:48 Fluoroscopy dose: 150 mGy 14:45:48 Flurop Dose total: 150 14:45:51 Sharps counted by scrub and verified by R.N. 14:46:02 Post sharps counted by scrub and verified by RN: Sutures: 14 Sponges: 5 Stick needles: 2 Skin needles: 2 Blade: 1 Cautery: 1 14:46:12 Insertion/operative site no bleeding no hematoma. 14:46:29 Post-op/insertion site Right Chest area dressed using a Mepilex dressing. 14:46:37 Post Chest area:stable, clean and dry 14:46:49 Post Procedure Pulses reassessed and unchanged 14:46:57 Post-procedure physical assessment completed. ASA score P 2 - A patient with mild systemic disease as per Rogelio Wilkinson MD. 14:47:34 Post procedure rhythm: paced 14:47:37 Estimated blood loss: 5 ml 14:47:38 Post procedure instruction explained to patient.Patient verbalizes understanding. 14:47:39 Patient needs reinforcement of post procedure teaching. 14:48:20 Procedure type changed to Cath procedure, Diagnostic procedure, PPM/ICD, PPM Dual Implant, Miscellaneous Procedures, Moderate Sedation up to 45 minutes 14:48:58 Procedure Complication : No complications 14:49:02 See physician's report for complete and final results. 14:49:23 Procedure and supply charges have been captured, reviewed, submitted and are correct. 14:53:12 Vital chart was stopped 14:53:35 Report given to PCU. 14:53:42 Patient transfered to PCU with Bed. 14:54:09 End room use (Document Last) Device Usage Item Name Manufacture Quantity Catalog Hospital Part Current Minimal Lot# / Serial# Number Charge Number Stock Stock Code Medtronic Medtronic 1 [id number] 5 [id number] Adapta PPM 08-20-18 Dual Generator Medtronic Medtronic 1 4074-52 [id number] [id number] 5 [id number]--36-47-98 4074-52 PPM Lead Medtronic Medtronic 1 4574-45 [id number] [id number] 5 [id number]--87-21-61 4574-45 PPM Lead Mepilex [place] 1 646136 379891 743872 760096 5 Dressing Health 2.0 Ticron Ethicon 0 [id number] 359166 63968 604793 5 Multipack 3.0 Vicryl Ethicon 1 [id number] 932191 426475 5 Multipack [id number] 5.0 Ethicon 1 Y495G 924577 793923 575662 5 Monocryl PS2 Y495G Immobilizer Cardinal 1 [id number] 570556 368157 615757 5 [facility] Medium Signature Audit [place] Stage Time Signature Unsigned Intra-Procedure 04/21/2017 Delisa 2:55:15 PM Counts RT(R) Signatures Monitor : Jennifer Rogers Signature : RT Date : Time : Monitor : Delisa Signature : Counts RT Date : Time : [id number] [place] [address]
[2017-04-21 11:57] LABS: APTT 26.6 SECONDS (22.8-39.4); INR 1.03 (0.85-1.17); PROTIME 13.4 SECONDS (11.6-15.0)
[2017-04-21] MEDS ORDERED: BETAPACE 80 MG80 MG PO (12:03)
[2017-04-21] MEDS ORDERED: PERCOCET 10/3251 TA1 PO (12:05)
[2017-04-21 12:08] LABS: HEMATOCRIT 36.3 % (42.0-54.0); HEMOGLOBIN 12.6 g/dL (13.5-17.5); MCH 33.2 pg (26.0-34.0); MCHC 34.7 g/dL (31.0-37.0); MCV 95.5 fL (80.0-100.0); MEAN PLATELET VOLUME 11.5 fL (7.4-10.4); RBC 3.8 10x6/uL (4.20-6.10); WBC 5.9 10x3/uL (4.8-10.8)
[2017-04-21 12:11] LABS: ANION GAP 14.5 mmol/L (8-16); CALCIUM 8.9 mg/dL (8.5-10.1); CREATININE - SERUM 1.9 mg/dL (0.6-1.3); POTASSIUM - SERUM 5.5 mmol/L (3.5-5.1)
[2017-04-21 12:16] VITALS: BP 162/61; BMI 22.1
[2017-04-21 15:43] VITALS: BP 131/61; Ht 163.8 cm; Wt 58.4 kg
--- NOTE | 2017-04-21 18:24 | NUR ---
UP AMBULATING HALLWAY WITH FAMILY.
--- NOTE | 2017-04-21 19:14 | NUR ---
RESUMED CARE OF PT, LYING IN BED RESPIRATIONS EVEN AND UNLABORED ON ROOM AIR. RIGHT CHEST INCISION C/D/I, RIGHT ARM SLING. 64 SR ON TELEMETRY. CALL LIGHT IN REACH. WILL CONTINUE TO MONITOR. SEE NURSE ASSESSMENT.
[2017-04-21 20:24] VITALS: BP 163/68
[2017-04-22 01:28] VITALS: BP 131/63
[2017-04-22 04:34] VITALS: BP 186/82
[2017-04-22 08:00] VITALS: BP 191/84
--- NOTE | 2017-04-22 09:50 | NUR ---
IV AND TELEMETRY DCD. DC PLANS GIVEN. UNDERSTANDING VOICED. ESCORTED TO CAR BY W/C.
--- NOTE | 2017-04-22 12:53 | OP ---
PATIENT NAME: CHRISTEN GOLDSTEIN MEDICAL RECORD: [id number] :38 LOCATION:D[facility] ADMISSION DATE: SURGEON: TOVA FOX MD DATE OF OPERATION: 04/21/2017 PROCEDURE: Lead portion of permanent pacemaker placement. INDICATION: Sick sinus syndrome, sheila escape rhythms. DESCRIPTION OF PROCEDURE: After the right subclavian was cannulated via modified Seldinger technique via Dr. Wilkinson, first under fluoroscopic guidance, I placed the RV lead in RV apex without difficulty. After adequate R waves and thresholds were obtained, again under fluoroscopic guidance, I placed right atrial lead in right atrial appendage without difficulty. After adequate P waves and thresholds were obtained, the leads were attached to appropriate poles of the generator and pocket was closed via Dr. Wilkinson. IMPRESSION: Successful lead portion of permanent pacemaker placement. ESTIMATED BLOOD LOSS: Minimal. DISPOSITION: To the floor, stable. COMPLICATIONS: None. TRANSINT:[id number] Voice Confirmation ID: [id number] DOCUMENT ID: [id number] TOVA FOX MD at 1253 CC: [id number] DICTATION DATE: 04/21/17 1524 [employer]: 04/22/17 0253 DEP CLI 04/22/17 [facility] [address] [place] [address]
== END 2017-04-22 09:52 | disposition home or self-care (01) ==
LOC: D.CATH 10:34 → D.M2 15:20 → D.CATH 04-22 09:52
PROVIDERS: Internal Medicine Interventional Cardiology
DX: I49.5 Sick sinus syndrome (principal); I07.1 Rheumatic tricuspid insufficiency; I25.10 Atherosclerotic heart disease of native coronary artery without angina pectoris; R53.83 Other fatigue; E11.9 Type 2 diabetes mellitus without complications; Z01.812 Encounter for preprocedural laboratory examination; F17.200 Nicotine dependence, unspecified, uncomplicated

== ENCOUNTER → 2018-01-06 14:32 | Outpatient (CLI) | payer MEDICARE, BC ==
[2017-04-21 15:43] VITALS: BMI 22.1
[~2018-01-06 14:32] MED LIST changes: +BETAPACE 80 MG80 MG PO; +PERCOCET 10/3251 TA1 PO
== END | disposition home or self-care (01) ==
LOC: D.CT 12-29 11:30
DX: M54.16 Radiculopathy, lumbar region (principal)

== ENCOUNTER → 2018-08-24 09:50 | Outpatient (CLI) | payer MEDICARE, BC ==
[2017-04-21 15:43] VITALS: BMI 22.1
== END | disposition home or self-care (01) ==
LOC: D.US 09:50
DX: I71.4 Abdominal aortic aneurysm, without rupture (principal)

== ENCOUNTER → 2019-05-30 08:08 | Outpatient (CLI) | payer MEDICARE, BC ==
[2017-04-21 15:43] VITALS: BMI 22.1
== END | disposition home or self-care (01) ==
LOC: D.CT 08:08
PROVIDERS: ATTEND Family Medicine
DX: R91.1 Solitary pulmonary nodule (principal)

== ENCOUNTER → 2020-01-29 09:29 | Outpatient (CLI) | payer MEDICARE, BC ==
[2017-04-21 15:43] VITALS: BMI 22.1
== END | disposition home or self-care (01) ==
LOC: D.CT 12-31 13:30
PROVIDERS: ATTEND Internal Medicine Hematology & Oncology
DX: R91.8 Other nonspecific abnormal finding of lung field (principal); N18.4 Chronic kidney disease, stage 4 (severe); D50.9 Iron deficiency anemia, unspecified; D51.9 Vitamin B12 deficiency anemia, unspecified